=== PATIENT | female | born 1945 | race Caucasian/White ===

== ENCOUNTER 2021-03-13 14:50 | Observation (INO) ==
[2021-03-13] MEDS ORDERED: LORazepam 0.5 MG TAB PO STA (15:19)
--- NOTE | 2021-03-13 15:19 | Emergency Department Note ---
Impression & Plan Mood disorder ED Provider Note INFORMANT: Patient ED PROVIDER(S): Dony Hooper MD CHIEF COMPLAINT: Mental health evaluation PLAN: Disposition: Admitted Condition: Good Outpatient prescription management: none Referral: None MEDICAL DECISION MAKING: Patient presented because of requesting a mental health evaluation. noted that she had a change in her behavior. She has had 2 recent mental health admissions. The patient had a nonfocal examination. A work-up was obtained. Her ECG did not show any acute findings. She had a leukocytosis on CBC. Urinalysis was concerning for infection. The rest of her electrolytes and toxicology panel were unremarkable. The patient was given IV Rocephin. Head CT imaging was negative as was chest x-ray. Discussed with case management. The patient will be admitted medically here and psychiatry can be consulted. Consultation was made with Dr. Cl Roman of the [facility] service. Patient was evaluated in the ER for further management. Triage Nursing notes reviewed and agree them. Vital Signs: reviewed and remarkable for no significant abnormalities Differential diagnosis: Mood disorder, infection, hypoglycemia, electrolyte abnormalities, cardiac so urces, intracerebral event, toxicologic, trauma, neurologic, as well as other pathologies. Diagnostics interpreted by me: ECG: Twelve-lead ECG reveals a normal sinus rhythm at 60 bpm. Poor R wave progression. No ST elevation or depression. No PACs or PVCs. Normal axis. Imaging studies: Chest x-ray. Findings: A chest x-ray was performed and revealed no pneumothorax, effusion, infiltrate, pulmonary edema, free air under the diaphragm, or wide mediastinum. Impression: No acute disease. Head CT: A noncontrast CT scan of the head was performed and was negative for tumor, fracture, intracranial hemorrhage, or other acute pathology. HPI: The patient is a 75 year old female who presents to the Emergency Room with complaints of depression and change in mental status. This started about 2 months ago per the and is worsening. The patient has spent two 1 weeks admissions at [facility] psychiatric unit. She was diagnosed with depression and mood disorder. She also had anxiety. states that she is getting worse. They presented here for a new evaluation and help. Patient has poor appetite and sleep. notes that she has excessive worry. The patient has found no relieving factors. Current pain is rated as 0/10. Patient does have a tremor. states she was seen at [facility] and worked up. No Parkinson's was found. Pt denies LOC, headache, fevers, chills, diaphoresis, visual changes, neck pain, chest pain, breathing difficulties, nausea, vomiting, abdominal pain, back pain, melena, hematochezia, urinary symptoms, numbness, weakness, lymphadenopathy, rash, or other complaints. ROS: See above HPI for pertinent positives & negatives. A total of 10 systems reviewed and were otherwise negative. PAST MEDICAL HISTORY:See Below , mood disorder PAST SURGICAL HISTORY:See Below, FAMILY HISTORY:See Below SOCIAL HISTORY:See Below, HOME MEDICATIONS:See Below ALLERGIES:See Below VITALS:See Below PHYSICAL EXAMINATION: GENERAL: Awake, alert, extremely anxious-appearing, in mild distress HENT: Normocephalic, atraumatic. Oropharynx unremarkable. EYES: Normal conjunctiva. Sclera non-icteric. NECK: Inspection normal. Non-tender. Supple. No nuchal rigidity. FROM. No masses. RESPIRATORY: Clear to auscultation. No wheezes. No rales. Normal respiratory effort. CARDIAC: Normal rate. Normal rhythm. No murmurs. No rubs. Extremities warm and well perfused. Pulses equal. No JVD. GI: Soft, non-distended. No tenderness to palpation. No rebound or guarding. No masses. RECTAL: Deferred. MUSCULOSKELETAL: Atraumatic. Chest examination reveals no tenderness. The back is symmetrical on inspection without obvious abnormality. There is no CVA tenderness to palpation. No joint edema. LOWER EXTREMITIES: Calves are equal size bilaterally and non-tender. No edema. No discoloration. NEURO: Normal sensorium. No sensory or motor deficits noted. SKIN: No rash or jaundice noted. PSYCH: Depressed mood and flat affect. No hallucinations or delusions. Impaired insight. Vague SI without plan. No HI. Dony Hooper MD Past Med/Surg History Social History Smoking Status: Never smoker Preferred Language: Bel[place]an Feels Safe at Home: Yes Home Meds Home Medications Medication Instructions Recorded Confirmed atenolol 25 mg PO DAILY 03/13/21 03/13/21 buspirone 10 mg TID 03/13/21 03/13/21 citalopram 20 mg PO DAILY 03/13/21 03/13/21 hydroxyzine pamoate [Vistaril] 25 mg Q4 PRN 03/13/21 03/13/21 lisinopril 20 mg PO DAILY 03/13/21 03/13/21 potassium chloride 20 meq PO BID 03/13/21 03/13/21 Results & Data (ED) Vital Signs Vital Signs - 24 hr 03/13/21 14:52 03/13/21 17:20 Temperature 36.5 C Temperature Source Temporal Artery Scan Pulse Rate 75 Pulse Rate [Finger] 70 Pulse Rhythm Regular Respiratory Rate 18 18 Respiratory Effort / Characteristics Non-Labored Spontaneous Respiratory Depth Normal Respiratory Pattern Regular Blood Pressure 132/72 Blood Pressure [Left Arm] 135/74 Blood Pressure Mean 92 Blood Pressure Mean [Left Arm] 94 Pulse Oximetry 92 96 Oxygen Delivery Method Room Air Room Air Sepsis Recent Fever Within 48 Hours No Sepsis New/Unexplained Change in Mental Status No Sepsis Action Taken by Nursing No Action Required Laboratory Data Result diagrams: 03/13/21 15:13 03/13/21 15:13 Lab Results 03/13/21 03/13/21 03/13/21 Range/Units 15:13 15:13 15:13 WBC 15.57 H (4.8-10.8) K/uL RBC 5.24 (4.2-5.4) M/uL Hgb 16.1 H (12.0-16.0) g/dL Hct 46.6 (37-47) % MCV 88.9 (80-100) fL MCH 30.7 (25-34) pg MCHC 34.5 (32-36) g/dL RDW Std Deviation 45.4 (36.4-46.3) fL RDW Coeff of Ziyad 13.9 (11.5-14.5) % Plt Count 327 (130-400) K/uL MPV 8.9 (7.4-10.4) fL Immature Gran % (Auto) 0.3 % Neut % (Auto) 73.2 % Lymph % (Auto) 20.5 % [place] % (Auto) 5.4 % Eos % (Auto) 0.5 % Baso % (Auto) 0.1 % Neut # (Auto) 11.39 H (1.4-6.5) K/uL Lymph # (Auto) 3.19 (1.2-3.4) K/uL [place] # (Auto) 0.84 H (0.11-0.59) K/uL Eos # (Auto) 0.08 (0-0.5) K/uL Baso # (Auto) 0.02 (0-0.2) K/uL Immature Gran # (Auto) 0.05 H (0.00-0.02) K/uL Sodium 134 L (136-145) mmol/L Potassium 4.6 (3.5-5.1) mmol/L Chloride 101 (98-107) mmol/L Carbon Dioxide 25 (21-32) mmol/L Anion Gap 8.0 (3-11) BUN 14 (7-18) mg/dl Creatinine 0.89 (0.6-1.2) mg/dl Est Cr Clr Drug Dosing 63.0 ml/min Est GFR ( Amer) 74.0 ml/min Est GFR (Non-Af Amer) 63.8 ml/min BUN/Creatinine Ratio 16.0 (10-20) Glucose 214 H (70-99) mg/dl Lactate (0.4-2.0) mmol/L Calcium 9.9 (8.5-10.1) mg/dl Total Bilirubin 0.7 (0.2-1) mg/dl AST 16 (15-37) U/L ALT 28 (12-78) U/L Alkaline Phosphatase 67 (45-117) U/L Troponin I < 0.015 (0-0.045) ng/ml Total Protein 7.5 (6.4-8.2) gm/dl Albumin 3.7 (3.4-5.0) gm/dl Globulin 3.8 (2.5-4.0) gm/dl Albumin/Globulin Ratio 1.0 (0.9-2) TSH 1.330 (0.300-4.500) uIu/ml Urine Color Urine Appearance (Clear) Urine pH (4.5-7.5) Ur Specific [place] (1.000-1.030) Urine Protein (Negative) Urine Glucose (UA) (Negative) Urine Ketones (Negative) Urine Blood (Negative) Urine Nitrite (Negative) Urine Bilirubin (Negative) Urine Urobilinogen (Negative) Ur Leukocyte Esterase (Negative) Urine WBC (Auto) (0-5) /hpf Urine RBC (Auto) (0-4) /hpf U Hyaline Cast (Auto) (0-5) /lpf U Epithel Cells (Auto) (0-5) /lpf Urine Bacteria (Auto) (Negative) Salicylates < 1.7 L (2.8-20) mg/dl Urine Opiates Screen (Neg) Ur Methadone, Qual (Neg) Acetaminophen < 2 L (10-30) ug/ml Urine Barbiturates (Neg) Ur Phencyclidine (PCP) (Neg) U Amphetamin/Meth Scrn (Neg) MDMA (Ecstasy) Screen (Neg) U Benzodiazepines Scrn (Neg) Ur Cocaine Metabolite (Neg) U Marijuana (THC) Screen (Neg) Ethyl Alcohol mg/dL (0-3) mg/dl COVID-19 Eval Order SARS-CoV-2, RNA, NAAT (NEGATIVE) 03/13/21 03/13/21 03/13/21 Range/Units 15:13 15:48 15:48 WBC (4.8-10.8) K/uL RBC (4.2-5.4) M/uL Hgb (12.0-16.0) g/dL Hct (37-47) % MCV (80-100) fL MCH (25-34) pg MCHC (32-36) g/dL RDW Std Deviation (36.4-46.3) fL RDW Coeff of Ziyad (11.5-14.5) % Plt Count (130-400) K/uL MPV (7.4-10.4) fL Immature Gran % (Auto) % Neut % (Auto) % Lymph % (Auto) % [place] % (Auto) % Eos % (Auto) % Baso % (Auto) % Neut # (Auto) (1.4-6.5) K/uL Lymph # (Auto) (1.2-3.4) K/uL [place] # (Auto) (0.11-0.59) K/uL Eos # (Auto) (0-0.5) K/uL Baso # (Auto) (0-0.2) K/uL Immature Gran # (Auto) (0.00-0.02) K/uL Sodium (136-145) mmol/L Potassium (3.5-5.1) mmol/L Chloride (98-107) mmol/L Carbon Dioxide (21-32) mmol/L Anion Gap (3-11) BUN (7-18) mg/dl Creatinine (0.6-1.2) mg/dl Est Cr Clr Drug Dosing ml/min Est GFR ( Amer) ml/min Est GFR (Non-Af Amer) ml/min BUN/Creatinine Ratio (10-20) Glucose (70-99) mg/dl Lactate (0.4-2.0) mmol/L Calcium (8.5-10.1) mg/dl Total Bilirubin (0.2-1) mg/dl AST (15-37) U/L ALT (12-78) U/L Alkaline Phosphatase (45-117) U/L Troponin I (0-0.045) ng/ml Total Protein (6.4-8.2) gm/dl Albumin (3.4-5.0) gm/dl Globulin (2.5-4.0) gm/dl Albumin/Globulin Ratio (0.9-2) TSH (0.300-4.500) uIu/ml Urine Color Urine Appearance (Clear) Urine pH (4.5-7.5) Ur Specific [place] (1.000-1.030) Urine Protein (Negative) Urine Glucose (UA) (Negative) Urine Ketones (Negative) Urine Blood (Negative) Urine Nitrite (Negative) Urine Bilirubin (Negative) Urine Urobilinogen (Negative) Ur Leukocyte Esterase (Negative) Urine WBC (Auto) (0-5) /hpf Urine RBC (Auto) (0-4) /hpf U Hyaline Cast (Auto) (0-5) /lpf U Epithel Cells (Auto) (0-5) /lpf Urine Bacteria (Auto) (Negative) Salicylates (2.8-20) mg/dl Urine Opiates Screen (Neg) Ur Methadone, Qual (Neg) Acetaminophen (10-30) ug/ml Urine Barbiturates (Neg) Ur Phencyclidine (PCP) (Neg) U Amphetamin/Meth Scrn (Neg) MDMA (Ecstasy) Screen (Neg) U Benzodiazepines Scrn (Neg) Ur Cocaine Metabolite (Neg) U Marijuana (THC) Screen (Neg) Ethyl Alcohol mg/dL < 3.0 (0-3) mg/dl COVID-19 Eval [id number] SARS-[facility]-2, RNA, NAAT NEGATIVE (NEGATIVE) 03/13/21 03/13/21 03/13/21 Range/Units 16:30 Unknown Unknown WBC (4.8-10.8) K/uL RBC (4.2-5.4) M/uL Hgb (12.0-16.0) g/dL Hct (37-47) % MCV (80-100) fL MCH (25-34) pg MCHC (32-36) g/dL RDW Std Deviation (36.4-46.3) fL RDW Coeff of Ziyad (11.5-14.5) % Plt Count (130-400) K/uL MPV (7.4-10.4) fL Immature Gran % (Auto) % Neut % (Auto) % Lymph % (Auto) % [place] % (Auto) % Eos % (Auto) % Baso % (Auto) % Neut # (Auto) (1.4-6.5) K/uL Lymph # (Auto) (1.2-3.4) K/uL [place] # (Auto) (0.11-0.59) K/uL Eos # (Auto) (0-0.5) K/uL Baso # (Auto) (0-0.2) K/uL Immature Gran # (Auto) (0.00-0.02) K/uL Sodium (136-145) mmol/L Potassium (3.5-5.1) mmol/L Chloride (98-107) mmol/L Carbon Dioxide (21-32) mmol/L Anion Gap (3-11) BUN (7-18) mg/dl Creatinine (0.6-1.2) mg/dl Est Cr Clr Drug Dosing ml/min Est GFR ( Amer) ml/min Est GFR (Non-Af Amer) ml/min BUN/Creatinine Ratio (10-20) Glucose (70-99) mg/dl Lactate 1.3 (0.4-2.0) mmol/L Calcium (8.5-10.1) mg/dl Total Bilirubin (0.2-1) mg/dl AST (15-37) U/L ALT (12-78) U/L Alkaline Phosphatase (45-117) U/L Troponin I (0-0.045) ng/ml Total Protein (6.4-8.2) gm/dl Albumin (3.4-5.0) gm/dl Globulin (2.5-4.0) gm/dl Albumin/Globulin Ratio (0.9-2) TSH (0.300-4.500) uIu/ml Urine Color Dark Yellow Urine Appearance Cloudy A (Clear) Urine pH 5.0 (4.5-7.5) Ur Specific [place] 1.037 H (1.000-1.030) Urine Protein 1+ H (Negative) Urine Glucose (UA) Negative (Negative) Urine Ketones 1+ H (Negative) Urine Blood Negative (Negative) Urine Nitrite Positive A (Negative) Urine Bilirubin 1+ H (Negative) Urine Urobilinogen Negative (Negative) Ur Leukocyte Esterase Trace H (Negative) Urine WBC (Auto) 10-30 H (0-5) /hpf Urine RBC (Auto) 0-4 (0-4) /hpf U Hyaline Cast (Auto) 5-10 H (0-5) /lpf U Epithel Cells (Auto) >30 H (0-5) /lpf Urine Bacteria (Auto) 4+ H (Negative) Salicylates (2.8-20) mg/dl Urine Opiates Screen Neg (Neg) Ur Methadone, Qual Neg (Neg) Acetaminophen (10-30) ug/ml Urine Barbiturates Neg (Neg) Ur Phencyclidine (PCP) Neg (Neg) U Amphetamin/Meth Scrn Neg (Neg) MDMA (Ecstasy) Screen Neg (Neg) U Benzodiazepines Scrn Neg (Neg) Ur Cocaine Metabolite Neg (Neg) U Marijuana (THC) Screen Neg (Neg) Ethyl Alcohol mg/dL (0-3) mg/dl COVID-19 Eval Order SARS-CoV-2, RNA, NAAT (NEGATIVE) Administered Medications Discontinued Medications Ceftriaxone Sodium (Rocephin) 1,000 mg in 50 mls @ 100 mls/hr IV NOW STA Stop: 03/13/21 16:43 Last Infusion: 03/13/21 17:22 Dose: 0 mls/hr Documented by: [id number] Admin: 03/13/21 16:52 Dose: 100 mls/hr Documented by: [id number] Lorazepam (Lorazepam 0.5 Mg Tab) 0.5 mg PO NOW STA Stop: 03/13/21 15:20 Last Admin: 03/13/21 15:38 Dose: 0.5 mg Documented by: [id number] Imaging Data Radiologist's Impression: Chest X-Ray 03/13/21 14:58 SINGLE VIEW CHEST CLINICAL HISTORY: Change in mental status. FINDINGS: An AP, portable, semierect chest radiograph is obtained. No prior studies are available for comparison at the time of dictation. The examination is degraded by portable technique, apical lordotic positioning, and patient rotation. The heart is enlarged noting atherosclerotic calcification of the thoracic aorta. The pulmonary vasculature is noncongested. A hiatal hernia is noted. There is mild elevation of the right hemidiaphragm. No airspace consolidation or large pleural effusion is identified. No pneumothorax is seen. The skeletal structures are osteopenic. The bony thorax is grossly intact. Spondylotic change is noted in the thoracic spine. IMPRESSION: Mild cardiomegaly with no acute cardiopulmonary abnormality. ACT 112: Negative or not required by law. Electronically signed by: Ryland Lipscomb M.D. 03/13/2021 3:[address] 03/13/21 14:58 CT SCAN OF THE BRAIN WITHOUT IV CONTRAST CLINICAL HISTORY: Change in mental status. COMPARISON STUDY: No priors. TECHNIQUE: Unenhanced axial CT scan of the brain is performed from the vertex to the skull base. A dose lowering technique was utilized adhering to the principles of ALARA. CT DOSE: 614.27 mGy.cm FINDINGS: Brain parenchyma: There are age-related involutional changes noting mild subcortical and periventricular microangiopathic change. There is no hemorrhage, mass effect, or evidence of acute territorial ischemia by CT criteria. Cardona- white matter differentiation is preserved. No extra-axial fluid collection is seen. Ventricles, sulci, cisterns: Prominent secondary to involutional change. Intracranial vasculature: There is atherosclerotic calcification of the cavernous carotid and vertebral arteries. Calvarium: Unremarkable. Sinuses and mastoids: The visualized paranasal sinuses are clear. The mastoid air cells are well pneumatized. Orbits: The bony orbits are grossly intact. IMPRESSION: There is no hemorrhage, mass effect, or evidence of acute territorial ischemia by CT criteria. ACT 112: Negative or not required by law. Electronically signed by: Ryland Lipscomb M.D. 03/13/2021 3:53 PM Discharge Plan Visit Data Chief Complaint: Mental Health Evaluation Stated Complaint: ANIEXTY/ MENTAL STATE ED Provider: Dony Hooper Discharge Problem: Mood disorder Forms Stand Alone Forms: My [facility], Suicide Prevention Resources Prescriptions Prescriptions: No Action buspirone 10 mg tablet 10 mg TID RF: 0 lisinopril 20 mg tablet 20 mg PO DAILY RF: 0 atenolol 25 mg tablet 25 mg PO DAILY RF: 0 citalopram 20 mg tablet 20 mg PO DAILY RF: 0 potassium chloride 20 mEq tablet extended release 20 meq PO BID RF: 0 hydroxyzine pamoate [Vistaril] 25 mg Capsule 25 mg Q4 PRN (Reason: Anxiety) RF: 0
--- NOTE | 2021-03-13 15:26 | XRay Report ---
SINGLE VIEW CHEST CLINICAL HISTORY: Change in mental status. FINDINGS: An AP, portable, semierect chest radiograph is obtained. No prior studies are available for comparison at the time of dictation. The examination is degraded by portable technique, apical lordo tic positioning, and patient rotation. The heart is enlarged noting atherosclerotic calcification of the thoracic aorta. The pulmonary vasculature is noncongested. A hiatal hernia is noted. There is mi ld elevation of the right hemidiaphragm. No airspace consolidation or large pleural effusion is ident ified. No pneumothorax is seen. The skeletal structures are osteopenic. The bony thorax is grossly in tact. Spondylotic change is noted in the thoracic spine. IMPRESSION: Mild cardiomegaly with no acute cardiopulmonary abnormality. ACT 112: Negative or not required by law. Electronically signed by: Ryland Lipscomb M.D. 03/13/2021 3:24 PM
[2021-03-13 15:27] LABS: Basophils # (auto) 0.02 K/uL (0-0.2); Basophils % (auto) 0.1 %; Eosinophils # (auto) 0.08 K/uL (0-0.5); Eosinophils % (auto) 0.5 %; Hematocrit (blood only) 46.6 % (37-47); Hemoglobin 16.1 g/dL (12.0-16.0); Immature Granulocytes # (auto) 0.05 K/uL (0.00-0.02); Immature Granulocytes % (auto) 0.3 %; Lymphocytes # (auto) 3.19 K/uL (1.2-3.4); Lymphocytes % (auto) 20.5 %; Mean Corpuscular Hemoglobin 30.7 pg (25-34); Mean Corpuscular Hgb Conc 34.5 g/dL (32-36); Mean Corpuscular Volume 88.9 fL (80-100); Mean Platelet Volume 8.9 fL (7.4-10.4); Monocytes # (auto) 0.84 K/uL (0.11-0.59); Monocytes % (auto) 5.4 %; Neutrophils # (auto) 11.39 K/uL (1.4-6.5); Neutrophils % (auto) 73.2 %; Platelet Count 327 K/uL (130-400); RDW Coefficient of Variation 13.9 % (11.5-14.5); RDW Standard Deviation 45.4 fL (36.4-46.3); Red Blood Count 5.24 M/uL (4.2-5.4); White Blood Count 15.57 K/uL (4.8-10.8)
[2021-03-13 15:52] LABS: Alanine Aminotransferase 28 U/L (12-78); Albumin Level 3.7 gm/dl (3.4-5.0); Aspartate Aminotransferase 16 U/L (15-37); Blood Urea Nitrogen 14 mg/dl (7-18); Calcium 9.9 mg/dl (8.5-10.1); Carbon Dioxide 25 mmol/L (21-32); Chloride 101 mmol/L (98-107); Est GFR (Non-African American) 63.8 ml/min; Glucose 214 mg/dl (70-99); Potassium 4.6 mmol/L (3.5-5.1); Sodium 134 mmol/L (136-145)
[2021-03-13 15:53] LABS: Appearance Urine Cloudy (Clear); Bacteria Urine Automated 4+ (Negative); Blood Urine Negative (Negative); Color Urine Dark Yellow; Epithelial Cell Urine Auto >30 /lpf (0-5); Glucose Urine UA Negative (Negative); Ketones Urine 1+ (Negative); Leukocyte Esterase Urine Trace (Negative); Nitrite Urine Positive (Negative); Protein Urine 1+ (Negative); Specific Gravity Urine 1.037 (1.000-1.030); Urobilinogen Urine Negative (Negative)
[2021-03-13 15:54] LABS: Bilirubin Urine 1+ (Negative)
--- NOTE | 2021-03-13 15:55 | CT Scan Report ---
CT SCAN OF THE BRAIN WITHOUT IV CONTRAST CLINICAL HISTORY: Change in mental status. COMPARISON STUDY: No priors. TECHNIQUE: Unenhanced axial CT scan of the brain is performed from the vertex to the skull base. A do se lowering technique was utilized adhering to the principles of ALARA. CT DOSE: 614.27 mGy.cm FINDINGS: Brain parenchyma: There are age-related involutional changes noting mild subcortical and periventric ular microangiopathic change. There is no hemorrhage, mass effect, or evidence of acute territorial i schemia by CT criteria. Cardona-white matter differentiation is preserved. No extra-axial fluid collecti on is seen. Ventricles, sulci, cisterns: Prominent secondary to involutional change. Intracranial vasculature: There is atherosclerotic calcification of the cavernous carotid and vertebr al arteries. Calvarium: Unremarkable. Sinuses and mastoids: The visualized paranasal sinuses are clear. The mastoid air cells are well pneu matized. Orbits: The bony orbits are grossly intact. IMPRESSION: There is no hemorrhage, mass effect, or evidence of acute territorial ischemia by CT crit vini. ACT 112: Negative or not required by law. Electronically signed by: Ryland Lipscomb M.D. 03/13/2021 3:53 PM
[2021-03-13 15:56] LABS: Acetaminophen < 2 ug/ml (10-30); Salicylate < 1.7 mg/dl (2.8-20)
[2021-03-13 16:03] LABS: Alkaline Phosphatase 67 U/L (45-117); Bilirubin,Total 0.7 mg/dl (0.2-1); Globulin 3.8 gm/dl (2.5-4.0); Total Protein 7.5 gm/dl (6.4-8.2); Troponin I < 0.015 ng/ml (0-0.045)
[2021-03-13 16:09] LABS: Amphetamines+Metham, Urine Neg (Neg); Barbiturates, Urine Neg (Neg); Benzodiazepine, Urine Neg (Neg); Cocaine, Urine Neg (Neg); MDMA (Ecstacy), Urine Neg (Neg); Methadone, Urine Neg (Neg); Opiate, Urine Neg (Neg); Phencyclidine, Urine Neg (Neg)
[2021-03-13] MEDS ORDERED: cefTRIAXone SODIUM 1,000 MG/50 ML BAG IV STA (16:14)
[2021-03-13 16:22] LABS: RBC Urine Automated 0-4 /hpf (0-4)
--- NOTE | 2021-03-13 18:23 | History & Physical Report ---
Date of Service March 13, 2021 Assessment & Plan (1) UTI (urinary tract infection): Continue ceftriaxone 1g IV daily Pending urine/blood cultures Trend WBC (2) Dyskinesia: Stop Buspar. Avoid anti-psychotics. Appears to be consistent HIM request for notes from recent admission in [place] Consult neurology (3) Tremor: Both postural and kinetic. ?Enhanced by citalopram/buspar. Discontinue Buspar alone for now. Consult neurology (4) Anxiety: Her movement disorder appears to be out of proportion to her anxiety on my assessment today. We will continue citalopram however given the Buspar known association with dyskinesia and patient's association this made her worse will discontinue this. (5) Hypertension: Continue atenolol 25 mg p.o. daily, lisinopril 20 mg p.o. daily (6) T2DM (type 2 diabetes mellitus): HbA1C with AM labs Lantus 10-30 units depending on BSG Novolog Goal BSG Range: Low 110 mg/dL, High 140 mg/dL Correction Factor: 15 mg/dL/unit INS:CHO Ratio: 1unit per 4 gms CHO consumed BSGs ACHS if eating, q6h if npo History of Present Illness Chief Complaint: Restlessness Primary Care Provider: Hilaria López Sandrine Heart is a 75 year old female who presents to the ER for mental health evaluation. History taken from the patient, , Triage, ER and [facility]'s notes. She reportedly has been feeling anxious and depressed with thoughts of suicide but feels she would not act on it. She notes being extremely restless and unable to sleep at night as she has to get up all the time to walk around the room. She denies any muscle weakness or numbness. She has a postural tremor mainly on her right side including her mastication muscle but this is more acute over the last month. She reports an association with this getting worse and starting on Buspar. She denies recently seeing a neurologist. Per triage assessments her states she cannot sit still, cannot eat and cannot sleep since February 12. She has had 2 stays at [place] [facility] with no improvement with medications. She comes to the [facility] today as they have been unhappy with the care in [place]. She has had suicidal ideation without a plan stating I have a thoughts, but would not actually do it. I just want this to stop. Discussed with her over the phone. 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 After the last hospitalization at [facility] in [place] she was reportedly doing well for only 1-2 days. Her took over her medications to help with compliance but this didn't help. Per [facility] unit notes she was admitted there a few months ago initially and was stabilized on her current medications but was non- compliant with this regimen at home. Her PCP switched her to sertraline but she never followed up with a psychiatrist. She wasre-evaluated for major depressive disorder on February 28 and admitted (I am less clear when she was discharged). She was restarted on citalopram and buspar and improved enough to be discharged home, although her thinks the patient asked to be discharged too early. In the ER she was noted to have urinalysis consistent with infection. She does endorse chills for the last 3-4 nights but no specific urinary symptoms. Due to urinary tract infection she was referred to medicine for admission and ongoing management. Home Medications Medication Instructions Recorded Confirmed Type atenolol 25 mg PO DAILY 03/13/21 03/13/21 History buspirone 10 mg TID 03/13/21 03/13/21 History citalopram 20 mg PO DAILY 03/13/21 03/13/21 History hydroxyzine pamoate [Vistaril] 25 mg Q4 PRN 03/13/21 03/13/21 History lisinopril 20 mg PO DAILY 03/13/21 03/13/21 History potassium chloride 20 meq PO BID 03/13/21 03/13/21 History Past Med/Surg History Medical History (Updated 03/14/21 @ 07:04 by Cl Roman MD) Hypertension T2DM (type 2 diabetes mellitus) Social History Smoking Status: Never smoker Hx Alcohol Use: No Hx Substance Use: No Preferred Language: Urdu Communication Ability: Effective Cooker Pie Filling Required: No Beliefs That Will Affect Care: None Current Living Situation: Spouse Other Information That Helps Us Care for You: No Feels Safe at Home: Yes Safety Concerns: Feels Safe At This Time Assistive Devices: Denture - Upper and Denture - Lower Review of Systems Review of Systems: All systems reviewed & are unremarkable except as noted in HPI & below Physical Exam Constitutional: WD/WN, vitals as above Eyes: PERRL, conjunctivae normal, anicteric sclerae ENMT: external ear and nose normal, oropharynx normal Neurologic: moves all extremities and awake; not confused Speech / Cognition: normal speech Motor/Sensory: + tremor (postural TUE > LUE, mastication muscles) Cranial Nerves: PERRL, EOM intact bilaterally, normal facial strength, tongue midline, able to rotate head bilaterally, able to elevate shoulders bilaterally, no nystagmus and symmetric palate elevation Gait: + wide-based gait Coordination: + abnormal [id number] test (R > L) Psychiatric: Orientation: alert and oriented x 3 Eye Contact: good eye contact Affect: euthymic affect Mood: + anxious mood Thought Process: linear/logical thought process Suicidal Thoughts: denies suicidal plan; + rep orts suicidal thoughts Homicidal Thoughts: denies homicidal thoughts Genitourinary: no CVA tenderness Results & Data Results & Data ([facility]) Vital Signs (Past 12 Hours) Vital Signs Temp Pulse Pulse Resp BP BP Pulse Ox 03/13/21 17:20 70 18 135/74 96 03/13/21 14:52 36.5 C 75 18 132/[address] SCAN OF THE BRAIN WITHOUT IV CONTRAST IMPRESSION: There is no hemorrhage, mass effect, or evidence of acute territorial ischemia by CT criteria. SINGLE VIEW CHEST IMPRESSION: Mild cardiomegaly with no acute cardiopulmonary abnormality. Medications Administered ER Medications Given: Lorazepam 0.5mg PO Ceftriaxone 1g IV ECG Indication: altered mental status Rate (beats per minute): 68 Rhythm: normal sinus Findings: no acute ischemic change Comparison ECG Date: from (Aug 02, 2021) Change: no significant change Code Status & VTE Plan Code Status Full VTE Prophylaxis Plan VTE Prophylaxis will be ordered: No PG Care Time/CCT Total # of Minutes Spent Total Time Spent with Patient: Total time spent is greater than 50% in coordination of care (as documented) at patient's floor/unit and/or counseling patient: Coding Level of Care Code 15312 OBS Care - Level 3 Diagnoses UTI (urinary tract infection) N39.0 Dyskinesia G24.9 Tremor R25.1 Anxiety F41.9 Hypertension I10 T2DM (type 2 diabetes mellitus) E11.9
[2021-03-13] MEDS ORDERED: CARBOHYDRATES FOR HYPOGLYCEMIA PO PRN (20:39)
[2021-03-13] MEDS ORDERED: GLUCOSE 10 TABS/TUBE PO PRN (20:39)
[2021-03-13] MEDS ORDERED: GLUCOSE 40% GEL 15 GM TUBE PO PRN (20:39)
[2021-03-13] MEDS ORDERED: GLUCAGON FOR INJ 1 MG VIAL SQ PRN (20:39)
[2021-03-13] MEDS ORDERED: DEXTROSE 50% 50 ML SYRINGE IV PRN (20:39)
[2021-03-13] MEDS: INSULIN ASPART 100 UNITS/ML 3 ML PEN SC SCH (21:44)
[2021-03-13] MEDS: POTASSIUM CHLORIDE CRTAB 20 MEQ TABCR PO SCH (21:48)
[2021-03-13] MEDS: INSULIN GLARGINE SOLOSTAR 100 UNITS/ML 3 ML PEN SC SCH (22:48)
[2021-03-14] MEDS: hydrOXYzine HCl 25 MG TAB PO PRN ×2 (03:53→09:41)
[2021-03-14 06:21] LABS: Basophils # (auto) 0.03 K/uL (0-0.2); Basophils % (auto) 0.2 %; Eosinophils # (auto) 0.12 K/uL (0-0.5); Eosinophils % (auto) 0.8 %; Hematocrit (blood only) 45.2 % (37-47); Hemoglobin 15.1 g/dL (12.0-16.0); Immature Granulocytes # (auto) 0.03 K/uL (0.00-0.02); Immature Granulocytes % (auto) 0.2 %; Lymphocytes # (auto) 2.52 K/uL (1.2-3.4); Lymphocytes % (auto) 16.9 %; Mean Corpuscular Hemoglobin 30.2 pg (25-34); Mean Corpuscular Hgb Conc 33.4 g/dL (32-36); Mean Corpuscular Volume 90.4 fL (80-100); Monocytes # (auto) 0.94 K/uL (0.11-0.59); Monocytes % (auto) 6.3 %; Neutrophils # (auto) 11.29 K/uL (1.4-6.5); Neutrophils % (auto) 75.6 %; Platelet Count 315 K/uL (130-400); RDW Standard Deviation 46.6 fL (36.4-46.3); White Blood Count 14.93 K/uL (4.8-10.8)
[2021-03-14 06:55] LABS: BUN Creatinine Ratio 24.3 (10-20); Calcium 8.9 mg/dl (8.5-10.1); Est GFR (African American) 97.3 ml/min; Est GFR (Non-African American) 83.9 ml/min; Potassium 4.1 mmol/L (3.5-5.1)
[2021-03-14 07:30] LABS: Estimated Average Glucose 171 mg/dl; Hemoglobin A1C 7.6 % (4.5-5.6)
[2021-03-14] MEDS: POTASSIUM CHLORIDE CRTAB 20 MEQ TABCR PO SCH ×2 (08:17→21:11)
[2021-03-14] MEDS: CITALOPRAM 20 MG TAB PO SCH (08:18)
[2021-03-14] MEDS: lisinopril 20 MG TAB PO SCH (08:18)
[2021-03-14] MEDS: INSULIN GLARGINE SOLOSTAR 100 UNITS/ML 3 ML PEN SC SCH ×2 (08:22→21:13)
[2021-03-14] MEDS: INSULIN ASPART 100 UNITS/ML 3 ML PEN SC SCH ×4 (08:23→21:15)
[2021-03-14] MEDS ORDERED: ATENOLOL 25 MG TABLET PO SCH (09:00)
--- NOTE | 2021-03-14 10:04 | Electrocardiogram Report ---
Test Reason : Blood Pressure : / mmHG Vent. Rate : 068 BPM Atrial Rate : 068 BPM P-R Int : 170 ms QRS Dur : 076 ms QT Int : 430 ms P-R-T Axes : 000 -29 009 degrees QTc Int : 457 ms Poor data quality, interpretation may be adversely affected Normal sinus rhythm Poor R wave progression, consider anterior DC vs. lead placement vs. LVH Abnormal ECG When compared with ECG of 02-AUG-1998 13:23, No significant change was found Confirmed by Hollis Hernandez ([id number]) on 03/14/2021 10:04:01 AM Referred By: Confirmed By:Hollis Hernandez
--- NOTE | 2021-03-14 10:15 | Neurology Consultation ---
Date of Consultation March 14, 2021 Assessment & Plan (1) Tremor: Sandrine Heart is a 75 yo woman w/ PMH of HTN, DM, and anxiety/depression/insomnia who p/t [facility] for worsening symptoms of depression, anxiety, sleep and tremor. # Tremor: given acute onset, c/f functional tremor in setting of decline in mood. 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 - ANILA to obtain records about prior work-up at [facility] (MRI, labs, EEG, etc) - if no MRI brain obtained at OSH, would obtain MRI brain w/ and w/o contrast - would check B12/MMA/folate/thiamine if not already checked at OSH - can consider changing atenolol to propranolol for possible underlying essential tremor - celexa is usually well tolerated in terms of tremor; least tremorigenic anti- depressant would be wellbutrin - no signs of tardive dyskinesia on examination - given c/f functional tremor, she would benefit from CBT with female therapist to help address her current stressors/depression Thank you for this interesting consult. Plan of care discussed with primary team. Please call or text with questions. (2) Hypertension: (3) Mood disorder: History of Present Illness Attending Physician: Erika Sims MD History of Present Illness Sandrine Heart is a 75 yo woman w/ PMH of HTN, DM, and anxiety/depression/insomnia who p/t [facility] for worsening symptoms of depression, anxiety, sleep and tremor. In the ED, she was afebrile, BP 132/72, heart rate 75, respiratory rate 18, satting 92% room air. Labs of her WBC 15.57, hemoglobin 16.1 with MCV 88.9, platelets 327, sodium mildly low at 134, potassium 4.6, creatinine 0.9, glucose 214, calcium within normal, LFTs within normal, troponin negative, TSH within normal, lactate within normal, UA with infection, UDS negative, Covid negative, A1c 7.6. Chest x-ray showed mild cardiomegaly and hiatal hernia but no infection. Further imaging independently reviewed. CT head shows no hemorrhage, notable for mild SVID and ?left frontal lobe arachnoid cyst vs imaging artifact. On examination, she reports that she had acute onset of tremor and worsening depression/anxiety several months ago after an interaction with her granddaughter who did not want to get dressed for school. Endorses severe depression and anxiety symptoms, as well as poor PO intake and sleep but otherwise unable to provide much history. Does note that she did have an MRI at [facility] and was told that she does not have PD. Denies ever being on any anti-psychotics in the past. Remote depression in the period decades ago. Reports that mother may have had a mild tremor with action. Denies any montes bstance/alcohol use. Per report, she has already been worked up at [facility] and [facility] for the same symptoms with no cause found other than underlying mood disorder. Records not available for extent of workup. Home Medications Medication Instructions Recorded Confirmed Type atenolol 25 mg PO DAILY 03/13/21 03/13/21 History buspirone 10 mg TID 03/13/21 03/13/21 History citalopram 20 mg PO DAILY 03/13/21 03/13/21 History hydroxyzine pamoate [Vistaril] 25 mg Q4 PRN 03/13/21 03/13/21 History lisinopril 20 mg PO DAILY 03/13/21 03/13/21 History potassium chloride 20 meq PO BID 03/13/21 03/13/21 History Patient History Medical History Hypertension T2DM (type 2 diabetes mellitus) Social History Smoking Status: Never smoker Hx Alcohol Use: No Hx Substance Use: No Preferred Language: [place] Communication Ability: Effective Senior Energy Trader Required: No Beliefs That Will Affect Care: None Current Living Situation: Spouse Other Information That Helps Us Care for You: No Feels Safe at Home: Yes Safety Concerns: Feels Safe At This Time Assistive Devices: Denture - Upper and Denture - Lower Review of Systems Review of Systems: 14 point review of systems completed and negative except as in HPI. Exam (Neuro) Physical Exam: General Exam: GEN: NAD, sitting in bed. HEENT: No conjunctival injection, no rhinorrhea. CV: RRR, no peripheral edema PULM: Nonlabored respirations on room air, frequent groaning when moving around. Neuro Exam: MS: Awake and Alert. Oriented to person, place, and date. Speech fluent and appropriate without dysarthria or paraphasic errors. Language intact including naming, comprehension, repetition. Cognition and memory mildly impaired. Attention intact. No neglect. CN: Visual vicente full. No extinction to double simultaneous stimuli. Unable to visualize fundi on fundoscopic exam. PERRLA OU. EOMI without nystagmus. Facial sensation intact to LT. Facial muscles full and symmetric. Hearing intact to conversation. Shoulder shrug normal. Tongue midline. When asked to move her face, she would start shaking her jaw (this was not present until asked to move it). MOTOR: Normal bulk and tone, no cogwheeling. No pronator drift. BUE strength 5/5 at deltoids, biceps, triceps, wrist flexors and extensors, and hand grasp bilaterally with giveaway weakness. BLE strength 5/5 at iliopsoas, hamstrings, quadriceps, tibialis anterior, and gastrocnemius bilaterally with mild giveaway weakness 2/2 pain (right>left). REFLEXES: 1+ at biceps, triceps, brachioradialis, trace patella and absent Achilles bilaterally. Flexor plantar responses bilaterally. SENSORY: Intact to LT without extinction to double simultaneous stimuli. Vibration intact throughout. COORDINATION: No dysmetria or ataxia on ebvchx-[id number] bilaterally. Normal Kacie bilaterally. Has an immediate fine high frequency tremor on outstretch (R>L) and at rest that is also present when examiner enters room and looks at her (but not present when she does not realize people are there). Tremor is worse with action like holding a cup and using it. GAIT: Antalgic gait with normal arm swing. Normal Romberg. Normal pull test. Results & Data ([facility]) Vital Signs (Past 12 Hours) Vital Signs Temp Pulse Resp BP Pulse Ox 03/14/21 07:31 36.6 C 80 18 169/74 H 92 PG Care Time/CCT Total # of Minutes Spent Total Time Spent with Patient: Total time spent is greater than 50% in coordination of care (as documented) at patient's floor/unit and/or counseling patient: 60 Coding Level of Care Code 30801 Office/Outpt Visit, New Diagnoses Tremor R25.1 Hypertension I10 Mood disorder F39
[2021-03-14] MEDS ORDERED: LORazepam 0.5 MG TAB PO PRN (11:47)
[2021-03-14 13:05] LABS: Folate (Folic Acid) > 20.00 ng/ml (>5.38); Vitamin B12 857 pg/ml (193-986)
[2021-03-14] MEDS: ALPRAZolam 0.5 MG TABLET PO PRN ×2 (13:57→21:18)
[2021-03-14] MEDS ORDERED: GADOBUTROL 65ML VIAL IV ONE (14:47)
--- NOTE | 2021-03-14 15:03 | Magnetic Resonance Report ---
MRI OF THE BRAIN WITHOUT AND WITH IV CONTRAST CLINICAL HISTORY: Unexplained tremors. COMPARISON STUDY: CT scan dated 03/13/2021 TECHNIQUE: MRI of the brain was performed from the vertex to the skull base utilizing various T1 and T2 weighted sequences. Following the IV administration of 10.4 mL of Gadavist contrast, additional en hanced images were obtained. FINDINGS: Sagittal T1, axial diffusion, proton density and T2 weighted axial, coronal FLAIR, and pre and post a xial T1-weighted images were acquired. These were supplemented with post gadolinium coronal T1 weight ed images. There is a small arachnoid cyst at the left frontoparietal vertex versus focal atrophy. Axial diffusion-weighted images reveal no evidence of acute or subacute infarction. There is no evidence of ventricular dilatation. Proton density T2-weighted and FLAIR images reveal scattered foci of increased T2 signal within the w nasim matter, likely on a small vessel basis. There are no abnormal flow voids. There is no evidence of pathologic enhancement. IMPRESSION: 1. 30 x 14 x 13 mm left frontoparietal vertex arachnoid cyst versus focal atrophy 2. No evidence of acute or subacute infarction 3. No evidence of pathologic enhancement 4. Scattered foci of increased T2 signal within the white matter likely on a small vessel basis ACT 112: Negative or not required by law. Electronically signed by: Naseem Harris M.D. 03/14/2021 3:02 PM
--- NOTE | 2021-03-14 15:18 | Hospitalist Progress Note ---
Date of Service March 14, 2021 Assessment & Plan (1) Anxiety: Presents with severe anxiety for the last month with inability to sleep or sit still, constant worry With significant tremor mostly in the jaw that seems to be functional as per neurology MRI of the brain completed today with possible arachnoid cyst but otherwise normal, no acute findings TSH normal, electrolytes normal Appreciate neurology consultation-check B12, folate, methylmalonic acid, thiamine Switch atenolol to propranolol for tremor and anxiety -Continue citalopram, but BuSpar was discontinued upon admission Appreciate psychiatry consultation-start Xanax 2 mg p.o. every 6 hours as needed anxiety while in the hospital-this is working extremely well so far and has not caused any lethargy -Continue hydroxyzine as needed -Psychiatry will determine if patient needs inpatient psychiatric stay after medically cleared (2) UTI (urinary tract infection): She had no UTI symptoms upon admission as far as dysuria or frequency, however she did report chills at home and had abnormal UA Urine culture growing gram-negative rods Blood cultures no growth to date With leukocytosis but afebrile here -Continue ceftriaxone 1g IV daily Follow-up final urine and blood cultures Follow CBC (3) Dyskinesia: Stop Buspar. Avoid anti-psychotics. HIM request for notes from recent admission in [place] Consult neurology appreciated (4) Tremor: Appreciate neurology consultation-likely functional tremor perhaps some physiologic tremor exacerbated by severe anxiety Switch atenolol to propranolol-we will start at 20 mg p.o. twice daily and titrate up as needed Citalopram would be okay, Wellbutrin would be the least likely to cause tremor Follow thiamine and methylmalonic acid levels B12 and folate normal (5) Hypertension: Blood pressures are well controlled Continue lisinopril 20 mg p.o. daily -Discontinue atenolol and starting propranolol as above (6) T2DM (type 2 diabetes mellitus): HbA1C here is fairly well controlled at 7.6% With some hyperglycemia here persisting near 200 Continue Lantus 10-30 units depending on BSG Change Novolog to lower correction factor to 12 Goal BSG Range: Low 110 mg/dL, High 140 mg/dL Correction Factor: 12 mg/dL/unit INS:CHO Ratio: 1unit per 4 gms CHO consumed BSGs ACHS if eating, q6h if npo (7) Leukocytosis: Secondary to either UTI versus severe stress from anxiety as above Follow CBC Blood cultures and urine culture Treated with ceftriaxone Check peripheral smear (8) DVT prophylaxis: Add SCDs Disposition-continued stay, likely medically stable for discharge tomorrow and will await disposition as per psychiatry Admission and Anticipated Discharge Date Admission Date: March 13, 2021 Subjective Patient received Xanax 2 mg today as per psychiatry prior to her MRI and I saw her after that-she reports feeling much improved. She is asking for help with her anxiety. She states "please do not give up on me." She denies headache or lightheadedness, no chest pain or shortness of breath, no abdominal pain, no nausea or vomiting, no diarrhea or constipation. Review of Systems Review of Systems: All systems reviewed & are unremarkable except as noted in HPI & below Physical Exam Constitutional: WD/WN, vitals as above Eyes: + anicteric sclerae Neck: trachea midline, no thyromegaly Respiratory: normal respiratory effort, lungs clear to auscultation Cardiovascular: RRR, no murmur, no edema Chest (Breasts): Chest: normal inspection of chest Gastrointestinal (Abdomen): normal bowel sounds, soft, nontender, no hepatosplenomegaly Musculoskeletal: Extremities: extremities normal to inspection; no cyanosis and no clubbing Skin: no rashes, warm and dry Neurologic: moves all extremities and awake; no focal motor deficits Psychiatric: Orientation: alert and oriented x 3 Speech: normal rate/rhythm/volume of speech Affect: + anxious affect Lymphatic: no lymphedema Results & Data Results & Data ([facility]) Vital Signs (Past 12 Hours) Vital Signs Temp Pulse Resp BP Pulse Ox 03/14/21 15:02 36.4 C L 74 18 101/64 93 03/14/21 07:31 36.6 C 80 18 169/74 H 92 Laboratory Results 03/14/21 03/14/21 03/14/21 Range/Units 16:37 12:04 11:58 WBC (4.8-10.8) K/uL RBC (4.2-5.4) M/uL Hgb (12.0-16.0) g/dL Hct (37-47) % MCV (80-100) fL MCH (25-34) pg MCHC (32-36) g/dL RDW Std Deviation (36.4-46.3) fL RDW Coeff of Ziyad (11.5-14.5) % Plt Count (130-400) K/uL MPV (7.4-10.4) fL Immature Gran % (Auto) % Neut % (Auto) % Lymph % (Auto) % [place] % (Auto) % Eos % (Auto) % Baso % (Auto) % Neut # (Auto) (1.4-6.5) K/uL Lymph # (Auto) (1.2-3.4) K/uL [place] # (Auto) (0.11-0.59) K/uL Eos # (Auto) (0-0.5) K/uL Baso # (Auto) (0-0.2) K/uL Immature Gran # (Auto) (0.00-0.02) K/uL Absolute Nucleated RBC (0-0) K/uL Nucleated RBC % (auto) % Peripher Smr Path Cons Sodium (136-145) mmol/L Potassium (3.5-5.1) mmol/L Chloride (98-107) mmol/L Carbon Dioxide (21-32) mmol/L Anion Gap (3-11) BUN (7-18) mg/dl Creatinine (0.6-1.2) mg/dl Est Cr Clr Drug Dosing ml/min Est GFR ( Amer) ml/min Est GFR (Non-Af Amer) ml/min BUN/Creatinine Ratio (10-20) Glucose (70-99) mg/dl POC Glucose 199 H 189 H (70-99) mg/dl Estimat Average Glucose mg/dl Hemoglobin A1c (4.5-5.6) % Calcium (8.5-10.1) mg/dl Whole Bld Vitamin B1 Pending Vitamin B12 (193-986) pg/ml Methylmalonic Acid Pending Folate (>5.38) ng/ml 03/14/21 03/14/21 03/14/21 Range/Units 11:58 08:19 05:50 WBC (4.8-10.8) K/uL RBC (4.2-5.4) M/uL Hgb (12.0-16.0) g/dL Hct (37-47) % MCV (80-100) fL MCH (25-34) pg MCHC (32-36) g/dL RDW Std Deviation (36.4-46.3) fL RDW Coeff of Ziyad (11.5-14.5) % Plt Count (130-400) K/uL MPV (7.4-10.4) fL Immature Gran % (Auto) % Neut % (Auto) % Lymph % (Auto) % [place] % (Auto) % Eos % (Auto) % Baso % (Auto) % Neut # (Auto) (1.4-6.5) K/uL Lymph # (Auto) (1.2-3.4) K/uL [place] # (Auto) (0.11-0.59) K/uL Eos # (Auto) (0-0.5) K/uL Baso # (Auto) (0-0.2) K/uL Immature Gran # (Auto) (0.00-0.02) K/uL Absolute Nucleated RBC (0-0) K/uL Nucleated RBC % (auto) % Peripher Smr Path Cons Sodium 135 L (136-145) mmol/L Potassium 4.1 (3.5-5.1) mmol/L Chloride 104 (98-107) mmol/L Carbon Dioxide 25 (21-32) mmol/L Anion Gap 6.0 (3-11) BUN 17 (7-18) mg/dl Creatinine 0.71 (0.6-1.2) mg/dl Est Cr Clr Drug Dosing 79.0 ml/min Est GFR ( Amer) 97.3 ml/min Est GFR (Non-Af Amer) 83.9 ml/min BUN/Creatinine Ratio 24.3 H (10-20) Glucose 201 H (70-99) mg/dl POC Glucose 212 H (70-99) mg/dl Estimat Average Glucose mg/dl Hemoglobin A1c (4.5-5.6) % Calcium 8.9 (8.5-10.1) mg/dl Whole Bld Vitamin B1 Vitamin B12 857 (193-986) pg/ml Methylmalonic Acid Folate > 20.00 (>5.38) ng/ml 03/14/21 03/14/21 03/13/21 Range/Units 05:50 05:50 20:51 WBC 14.93 H (4.8-10.8) K/uL RBC 5.00 (4.2-5.4) M/uL Hgb 15.1 (12.0-16.0) g/dL Hct 45.2 (37-47) % MCV 90.4 (80-100) fL MCH 30.2 (25-34) pg MCHC 33.4 (32-36) g/dL RDW Std Deviation 46.6 H (36.4-46.3) fL RDW Coeff of Ziyad 14.0 (11.5-14.5) % Plt Count 315 (130-400) K/uL MPV 9.0 (7.4-10.4) fL Immature Gran % (Auto) 0.2 % Neut % (Auto) 75.6 % Lymph % (Auto) 16.9 % [place] % (Auto) 6.3 % Eos % (Auto) 0.8 % Baso % (Auto) 0.2 % Neut # (Auto) 11.29 H (1.4-6.5) K/uL Lymph # (Auto) 2.52 (1.2-3.4) K/uL [place] # (Auto) 0.94 H (0.11-0.59) K/uL Eos # (Auto) 0.12 (0-0.5) K/uL Baso # (Auto) 0.03 (0-0.2) K/uL Immature Gran # (Auto) 0.03 H (0.00-0.02) K/uL Absolute Nucleated RBC 0.00 (0-0) K/uL Nucleated RBC % (auto) 0.0 % Peripher Smr Path Cons Pending Sodium (136-145) mmol/L Potassium (3.5-5.1) mmol/L Chloride (98-107) mmol/L Carbon Dioxide (21-32) mmol/L Anion Gap (3-11) BUN (7-18) mg/dl Creatinine (0.6-1.2) mg/dl Est Cr Clr Drug Dosing ml/min Est GFR ( Amer) ml/min Est GFR (Non-Af Amer) ml/min BUN/Creatinine Ratio (10-20) Glucose (70-99) mg/dl POC Glucose 216 H (70-99) mg/dl Estimat Average Glucose 171 mg/dl Hemoglobin A1c 7.6 H (4.5-5.6) % Calcium (8.5-10.1) mg/dl Whole Bld Vitamin B1 Vitamin B12 (193-986) pg/ml Methylmalonic Acid Folate (>5.38) ng/ml PG Care Time/CCT Total # of Minutes Spent Total Time Spent with Patient: Total time spent is greater than 50% in coordination of care (as documented) at patient's floor/unit and/or counseling patient: Coding Level of Care Code 29240 Subseq Obs Care Lvl 3 Diagnoses Anxiety F41.9 UTI (urinary tract infection) N39.0 Dyskinesia G24.9 Tremor R25.1 Hypertension I10 T2DM (type 2 diabetes mellitus) E11.9 Leukocytosis D72.829 DVT prophylaxis Z29.9
--- NOTE | 2021-03-14 15:55 | Psychiatric Consultation ---
Date of Consultation March 14, 2021 Impression / Recommendations Impression [age]-year-old patient with UTI and significant anxiety. It is likely that the patient's current infection exacerbated her psychiatric symptoms. Nevertheless she is suffering from acute anxiety and will benefit from as needed Xanax as needed to address this. Recommendations Start Xanax 2 mg p.o. every 6 hours as needed anxiety while in the hospital Citalopram 20 mg p.o. remains appropriate Continue to treat infection as indicated Inventory Assets Strengths: Insight, ability to communicate Needs: Anxiety relief Risk Factors Assessment Male: No : No Do You Have Access To A Gun?: No Health Problems: Yes Mental Health Diagnoses: No Hopelessness: No Protective Factors Assessment Temple Beliefs: Yes : Yes Stable Relationships: Yes Supportive Family: Yes Psych History Chief Complaint "I am so anxious". History of Present Illness As per psychiatric liaison " Psychiatric consult ordered for patient regarding SI. Primary staff requested liaison speak with patient at ~ 0400 when she woke up and became very anxious. Met with patient, in room, 1:1 present. She isn't the best historian at this time d/t anxiety. She initially reported being awakened by her t.v. being fixed and felt there was too much noise throughout the night, causing her distress. 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 Patient was helping her get ready for school and on the bus in the morning, this became overwhelming to her. Patient had difficulty identifying any other stressors that could have led to this change. She reports feeling helpless and hopeless, "I don't know if I can live like this or if anybody can even help me". Patient reports a worsening of her symptoms when initiated on antidepressants while inpatient at [facility] psych unit. She felt frustrated with several medications that had been made up to this point. She admits to passive wishes, without plan. She was unable to tolerate full suicide risk assessment at this time. She describes poor sleep with extreme sweating and restlessness. Soon into conversation patient began to appear calmer (had received Vistaril prior to encounter) and was drifting to sleep. This liaison ended conversation and exited the room. Liaison will meet with patient again to obtain additional information. Patient aware a psychiatrist will see her today." Patient seen today alongside liaison. She endorses the above information is accurate. Patient was very anxious during the encounter. She states that she does not know what was wrong with her but that she does not feel fine. She goes on to state that she is very anxious and that nothing like this is ever happened to her before. She denied any psychosis at this time, no psychosis evident. Patient denying any suicidal ideation at this time. Reports being worried about her functioning without her. She had recently received some Ativan approximately 2 hours prior but was not having any relief from her anxiety. She endorsed symptoms of racing thoughts as well as a general sense of uneasiness. Past Psychiatric History Previous Psych History: 1 prior episode of depression Do You Have Access To A Gun?: No Home Medications Medication Instructions Recorded Confirmed Type atenolol 25 mg PO DAILY 03/13/21 03/13/21 History buspirone 10 mg TID 03/13/21 03/13/21 History citalopram 20 mg PO DAILY 03/13/21 03/13/21 History hydroxyzine pamoate [Vistaril] 25 mg Q4 PRN 03/13/21 03/13/21 History lisinopril 20 mg PO DAILY 03/13/21 03/13/21 History potassium chloride 20 meq PO BID 03/13/21 03/13/21 History Personal History Beliefs That Will Affect Care: None Patient History Medical History Hypertension T2DM (type 2 diabetes mellitus) Social History Smoking Status: Never smoker Hx Alcohol Use: No Hx Substance Use: No Preferred Language: Pashto Communication Ability: Effective Traffic Representative Required: No Beliefs That Will Affect Care: None Current Living Situation: Spouse Other Information That Helps Us Care for You: No Feels Safe at Home: Yes Safety Concerns: Feels Safe At This Time Assistive Devices: Denture - Upper and Denture - Lower Physical Exam Psychiatric: Orientation: oriented x 3 Apperance: appropriately groomed Eye Contact: + fair eye contact Motor Behavior: + psychomotor agitation and + tremor Speech: + loud speech Affect: + anxious affect Mood: + anxious mood Thought Process: goal directed thought process and + perseveration Thought Content: reality based without delusions Suicidal Thoughts: denies s uicidal thoughts Homicidal Thoughts: denies homicidal thoughts Hallucinations: no auditory hallucinations Cognition: recent memory grossly intact Estimated Intelligence: average estimated intelligence Insight: + fair insight Judgement: + fair judgement Vital Signs (Past 24 Hours): Last Vital Signs Temp 36.4 C L 03/14/21 15:02 Pulse 74 03/14/21 15:02 Resp 18 03/14/21 15:02 BP 101/64 03/14/21 15:02 Pulse Ox 93 03/14/21 15:02 Review of Systems All systems reviewed & are unremarkable except as noted in HPI & below Results & Data (PSY) Medications Administered Alprazolam (Alprazolam 0.5 Mg Tablet) 2 mg PO Q6H PRN PRN Reason: Anxiety Stop: 04/13/21 13:45 Last Admin: 03/14/21 13:57 Dose: 2 mg Documented by: [id number] Citalopram Hydrobromide (Citalopram 20 Mg Tab) 20 mg PO DAILY [facility] Stop: 04/13/21 08:59 Last Admin: 03/14/21 08:18 Dose: 20 mg Documented by: [id number] Hydroxyzine HCl (Hydroxyzine Hcl 25 Mg Tab) 25 mg PO Q4 PRN PRN Reason: Anxiety Stop: 04/12/21 20:38 Last Admin: 03/14/21 09:41 Dose: 25 mg Documented by: [id number] Admin: 03/14/21 03:53 Dose: 25 mg Documented by: [id number] Insulin Aspart (Insulin Aspart 100 Units/Ml 3 Ml Pen) 0 units SC ACHS [facility] Stop: 04/12/21 20:59 Last Admin: 03/14/21 12:19 Dose: 24 units Documented by: [id number] Cosigned by: [id number] Admin: 03/14/21 08:23 Dose: 20 units Documented by: [id number] Cosigned by: [id number] Admin: 03/13/21 21:44 Dose: 6 units Documented by: [id number] Cosigned by: [id number] Insulin Glargine (Insulin Glargine Solostar 100 Units/Ml 3 Ml Pen) 10 - 30 units SC BID [facility] Stop: 04/12/21 20:59 Last Admin: 03/14/21 08:22 Dose: 30 units Documented by: [id number] Cosigned by: [id number] Admin: 03/13/21 22:48 Dose: 30 units Documented by: [id number] Cosigned by: [id number] Lisinopril (Lisinopril 20 Mg Tab) 20 mg PO DAILY [facility] Stop: 04/13/21 08:59 Last Admin: 03/14/21 08:18 Dose: 20 mg Documented by: [id number] Lorazepam (Lorazepam 0.5 Mg Tab) 0.5 mg PO BID PRN PRN Reason: Anxiety Stop: 04/13/21 11:46 Last Admin: 03/14/21 12:19 Dose: 0.5 mg Documented by: [id number] Potassium Chloride (Potassium Chloride Crtab 20 Meq Tabcr) 20 meq PO BID [facility] Stop: 04/12/21 20:59 Last Admin: 03/14/21 08:17 Dose: 20 meq Documented by: [id number] Admin: 03/13/21 21:48 Dose: Not Given Documented by: [id number] Coding Level of Care Code 12813 U Intl Hosp Care Lvl 2
[2021-03-14] MEDS ORDERED: cefTRIAXone SODIUM 2,000 MG in DEXTROSE 5% 50 ML IV SCH (16:00)
[2021-03-14] MEDS ORDERED: ACETAMINOPHEN 500 MG TAB PO PRN (20:03)
[2021-03-14] MEDS: PROPRANOLOL HCL 20 MG TAB PO SCH (21:12)
[2021-03-15 06:01] LABS: Basophils # (auto) 0.02 K/uL (0-0.2); Basophils % (auto) 0.2 %; Eosinophils # (auto) 0.16 K/uL (0-0.5); Eosinophils % (auto) 1.3 %; Hematocrit (blood only) 41.8 % (37-47); Hemoglobin 14.2 g/dL (12.0-16.0); Immature Granulocytes # (auto) 0.03 K/uL (0.00-0.02); Immature Granulocytes % (auto) 0.2 %; Lymphocytes # (auto) 3.38 K/uL (1.2-3.4); Lymphocytes % (auto) 27.4 %; Mean Corpuscular Hemoglobin 30.5 pg (25-34); Mean Corpuscular Volume 89.7 fL (80-100); Monocytes # (auto) 0.78 K/uL (0.11-0.59); Monocytes % (auto) 6.3 %; Neutrophils # (auto) 7.96 K/uL (1.4-6.5); Neutrophils % (auto) 64.6 %; Platelet Count 261 K/uL (130-400); Red Blood Count 4.66 M/uL (4.2-5.4); White Blood Count 12.33 K/uL (4.8-10.8)
[2021-03-15 06:35] LABS: BUN Creatinine Ratio 32.7 (10-20); Calcium 9.5 mg/dl (8.5-10.1); Creatinine Clr Calc Pharmacy 68.4 ml/min; Est GFR (African American) 81.7 ml/min; Est GFR (Non-African American) 70.5 ml/min; Magnesium 1.6 mg/dl (1.8-2.4); Potassium 4.3 mmol/L (3.5-5.1)
[2021-03-15] MEDS: INSULIN GLARGINE SOLOSTAR 100 UNITS/ML 3 ML PEN SC SCH (09:12)
[2021-03-15] MEDS: INSULIN ASPART 100 UNITS/ML 3 ML PEN SC SCH ×2 (09:13→13:15)
[2021-03-15] MEDS: CITALOPRAM 20 MG TAB PO SCH (09:15)
[2021-03-15] MEDS: POTASSIUM CHLORIDE CRTAB 20 MEQ TABCR PO SCH (09:15)
[2021-03-15] MEDS: lisinopril 20 MG TAB PO SCH (09:15)
[2021-03-15] MEDS: PROPRANOLOL HCL 20 MG TAB PO SCH (09:15)
[2021-03-15] MEDS ORDERED: MAGNESIUM SULFATE / D5W 1 GM/100 ML BAG IV ONE (10:30)
--- NOTE | 2021-03-15 12:07 | Discharge Summary ---
Date of Service March 15, 2021 Admission HPI Per Admitting Provider Sandrine Heart is a 75 year old female who presents to the ER for mental health evaluation. History taken from the patient, , Triage, ER and [facility] Paul Tirado's notes. She reportedly has been feeling anxious and depressed with thoughts of suicide but feels she would not act on it. She notes being extremely restless and unable to sleep at night as she has to get up all the time to walk around the room. She denies any muscle weakness or numbness. She has a postural tremor mainly on her right side including her mastication muscle but this is more acute over the last month. She reports an association with this getting worse and starting on Buspar. She denies recently seeing a neurologist. Per triage assessments her states she cannot sit still, cannot eat and cannot sleep since February 12. She has had 2 stays at [facility] with no improvement with medications. She comes to the [facility] today as they have been unhappy with the care in [place]. She has had suicidal ideation without a plan stating I have a thoughts, but would not actually do it. I just want this to stop. Discussed with her over the phone. 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 After the last hospitalization at [facility] in [place] she was reportedly doing well for only 1-2 days. Her took over her medications to help with compliance but this didn't help. Per [facility] unit notes she was admitted there a few months ago initially and was stabilized on her current medications but was non- compliant with this regimen at home. Her PCP switched her to sertraline but she never followed up with a psychiatrist. She wasre-evaluated for major depressive disorder on February 28 and admitted (I am less clear when she was discharged). She was restarted on citalopram and buspar and improved enough to be discharged home, although her thinks the patient asked to be discharged too early. In the ER she was noted to have urinalysis consistent with infection. She does endorse chills for the last 3-4 nights but no specific urinary symptoms. Due to urinary tract infection she was referred to medicine for admission and ongoing management. Principal Diagnosis Anxiety, functional tremor, UTI Discharge Exam Constitutional WD/WN, vitals as above Eyes + anicteric sclerae Neck trachea midline, no thyromegaly Respiratory normal respiratory effort, lungs clear to auscultation Cardiovascular RRR, no murmur, no edema Chest (Breasts) Chest: normal inspection of chest Gastrointestinal (Abdomen) normal bowel sounds, soft, nontender, no hepatosplenomegaly Musculoskeletal Extremities: extremities normal to inspection; no cyanosis and no clubbing Skin no rashes, warm and dry Neurologic moves all extremities and awake; no focal motor deficits Psychiatric Orientation: alert and oriented x 3 Speech: normal rate/rhythm/volume of speech Affect: + anxious affect Lymphatic no lymphedema Discharge Data Allergies Allergy/AdvReac Type Severity Reaction Status Date / Time perfume Allergy Unknown Verified 03/14/21 21:53 pollen extracts AdvReac Unknown Verified 03/14/21 21:53 Consultations 03/13/21 17:18 ED Decision to Admit Stat 03/13/21 17:33 Consult Health Information Management Routine 03/13/21 20:39 Consult Neurology Routine Consult Psychiatry Routine Ordered Studies 03/13/21 14:58 CT head/brain wo con Stat 03/14/21 11:47 MR brain wo/w con Urgent Chest X-Ray 03/13/21 14:58 SINGLE VIEW CHEST CLINICAL HISTORY: Change in mental status. FINDINGS: An AP, portable, semierect chest radiograph is obtained. No prior studies are available for comparison at the time of dictation. The examination is degraded by portable technique, apical lordotic positioning, and patient rotation. The heart is enlarged noting atherosclerotic calcification of the thoracic aorta. The pulmonary vasculature is noncongested. A hiatal hernia is noted. There is mild elevation of the right hemidiaphragm. No airspace consolidation or large pleural effusion is identified. No pneumothorax is seen. The skeletal structures are osteopenic. The bony thorax is grossly intact. S pondylotic change is noted in the thoracic spine. IMPRESSION: Mild cardiomegaly with no acute cardiopulmonary abnormality. ACT 112: Negative or not required by law. Electronically signed by: Ryland Lipscomb M.D. 03/13/2021 3:[address] 03/13/21 14:58 CT SCAN OF THE BRAIN WITHOUT IV CONTRAST CLINICAL HISTORY: Change in mental status. COMPARISON STUDY: No priors. TECHNIQUE: Unenhanced axial CT scan of the brain is performed from the vertex to the skull base. A dose lowering technique was utilized adhering to the principles of ALARA. CT DOSE: 614.27 mGy.cm FINDINGS: Brain parenchyma: There are age-related involutional changes noting mild subcortical and periventricular microangiopathic change. There is no hemorrhage, mass effect, or evidence of acute territorial ischemia by CT criteria. Cardona- white matter differentiation is preserved. No extra-axial fluid collection is seen. Ventricles, sulci, cisterns: Prominent secondary to involutional change. Intracranial vasculature: There is atherosclerotic calcification of the cavernous carotid and vertebral arteries. Calvarium: Unremarkable. Sinuses and mastoids: The visualized paranasal sinuses are clear. The mastoid air cells are well pneumatized. Orbits: The bony orbits are grossly intact. IMPRESSION: There is no hemorrhage, mass effect, or evidence of acute territ orial ischemia by CT criteria. ACT 112: Negative or not required by law. Electronically signed by: Ryland Lipscomb M.D. 03/13/2021 3:53 PM Brain MRI 03/14/21 11:47 MRI OF THE BRAIN WITHOUT AND WITH IV CONTRAST CLINICAL HISTORY: Unexplained tremors. COMPARISON STUDY: CT scan dated 03/13/2021 TECHNIQUE: MRI of the brain was performed from the vertex to the skull base utilizing various T1 and T2 weighted sequences. Following the IV administration of 10.4 mL of Gadavist contrast, additional enhanced images were obtained. FINDINGS: Sagittal T1, axial diffusion, proton density and T2 weighted axial, coronal FLAIR, and pre and post axial T1-weighted images were acquired. These were supplemented with post gadolinium coronal T1 weighted images. There is a small arachnoid cyst at the left frontoparietal vertex versus focal atrophy. Axial diffusion-weighted images reveal no evidence of acute or subacute infarction. There is no evidence of ventricular dilatation. Proton density T2-weighted and FLAIR images reveal scattered foci of increased T2 signal within the white matter, likely on a small vessel basis. There are no abnormal flow voids. There is no evidence of pathologic enhancement. IMPRESSION: 1. 30 x 14 x 13 mm left frontoparietal vertex arachnoid cyst versus focal atrophy 2. No evidence of acute or subacute infarction 3. No evidence of pathologic enhancement 4. Scattered foci of increased T2 signal within the white matter likely on a small vessel basis ACT 112: Negative or not required by law. Electronically signed by: Naseem Harris M.D. 03/14/2021 3:02 PM Hospital Course (1) Anxiety: Presents with severe anxiety for the last month with inability to sleep or sit still, constant worry With significant tremor mostly in the jaw that seems to be functional as per neurology MRI of the brain completed here with possible arachnoid cyst but otherwise normal, no acute findings TSH normal, electrolytes normal Appreciate neurology consultation-check [id number], folate-normal, methylmalonic acid and thiamine-pending at time of discharge Switched atenolol to propranolol for tremor and anxiety -Continue citalopram -BuSpar was held upon admission in case this was worsening her tremor and anxiety, but Psychiatry here does not think this is causing her symptoms and thinks it can be restarted Overall, Psychiatry thinks worsening anxiety due to UTI and with treatment of UTI, should improve-does NOT recommend inpatient stay SHould f/u with usual Psychiatrist as scheduled tomorrow was given Xanax 2mg po x 2 doses here with good success -Continue hydroxyzine as needed (2) UTI (urinary tract infection): She had no UTI symptoms upon admission as far as dysuria or frequency, however she did report chills at home and had abnormal UA as wlel as severe anxiety as above Urine culture growing pansensitive E. coli Blood cultures no growth to date With leukocytosis but afebrile here. Leukocytosis now improving down to 12 -received ceftriaxone 1g IV daily x 2 doses here and dc to home on 5 more day s of keflex 500mg po bid (3) Dyskinesia: Consult neurology appreciated-does not think has PD Brain MRI without acute issues (4) Tremor: Appreciate neurology consultation-likely functional tremor perhaps some physiologic tremor exacerbated by severe anxiety Switched atenolol to propranolol-started at 20 mg p.o. twice daily and titrate up to 40mg bid on discharge Citalopram would be okay, Wellbutrin would be the least likely to cause tremor Follow thiamine and methylmalonic acid levels after discharge B12 and folate normal (5) Hypertension: Blood pressures are well controlled Continue lisinopril 20 mg p.o. daily -Discontinue atenolol and starting propranolol as above (6) T2DM (type 2 diabetes mellitus): HbA1C here is fairly well controlled at 7.6% With some hyperglycemia here persisting near 200 and once to 300 Pt reports she forgets to take her insulin at home Continue Lantus 30 units in AM and 40 units in evening COntinue Novolog at home with meals as per home sliding scale f/u with PCP encouraged compliance (7) Leukocytosis: Secondary to either UTI versus severe stress from anxiety as above Follow CBC-improved down to 12k on day of discharge peripheral smear without evidence of malignancy--> is all neutrophilia treated UTI as above (8) DVT prophylaxis: SCDs Disposition-dc to home today Total Time Total Time Spent Total Time Spent (In Minutes): 40 min Total Time Includes: Examination of the Patient, Discharge Planning, Medication Reconciliation and Communication With Other Providers (Psychiatry) Discharge Plan Discharge Items Patient Disposition: Home - Self-Care Reason For Visit: MENTAL HEALTH EVALUATION, UTI Discharge Diagnosis: Anxiety, UTI Condition on Discharge: Fair Activity: Resume your previous activity Non-emergency contact: Primary Care Provider and Psychiatrist Call non-emergency contact if: you have any medication questions and your symptoms worsen Follow-up/Referrals: Hilaria López D.O. [Primary Care Provider] - (Follow up within 1-2 weeks.) Diet: Carb Consistent or DM2 and Heart Healthy Addtl Attending Provider Instructions: You were admitted with significant anxiety, tremors, and found to have a urinary tract infection. Please finish out the course of antibiotics with cephalexin for the UTI for 5 more days. You were seen by Neurology and had a brain MRI which did not show anything new that would be causing your anxiety and tremor. You had a lot of labs drawn including checking your B vitamins and thyroid function ,kidney function, electrolytes. All of this was normal except your vitamin B1 level (thiamine) was still pending at the time of discharge. You will be contacted if this comes back abnormal. The Neurologist thought it would be better for you to take propranolol INSTEAD of ATENOLOL which will help you with your tremor and with high blood pressure. You were also seen by Psychiatry who thought your severe anxiety is worsened by your urinary tract infection. Please finish out the course of antibiotics and keep your appointment tomorrow with Dr. Zee. Psychiatry here thought it was FINE for you to continue taking all of your psychiatric medications as before, and follow up with your Psychiatrist for any further changes in medications. Pending Studies at Discharge: Yes Stand-Alone Forms: My [facility] Medications and DC Order Prescriptions: New propranolol 40 mg tablet 40 mg PO BID Qty: 60 RF: 0 cephalexin 500 mg capsule 500 mg PO BID Qty: 10 RF: 0 Continued buspirone 10 mg tablet 10 mg TID RF: 0 lisinopril 20 mg tablet 20 mg PO DAILY RF: 0 citalopram 20 mg tablet 20 mg PO DAILY RF: 0 potassium chloride 20 mEq tablet extended release 20 meq PO BID RF: 0 hydroxyzine pamoate [Vistaril] 25 mg Capsule 25 mg Q4 PRN (Reason: Anxiety) RF: 0 insulin aspart U-100 [Novolog Flexpen U-100 Insulin] 100 unit/mL (3 mL) insulin pen See Rx Instructions .ROUTE .COMPLEX RF: 0 Basaglar KwikPen U-100 Insulin 100 unit/mL (3 mL) insulin pen 30 unit SUBCUT QAM RF: 0 Discontinued atenolol 25 mg tablet 25 mg PO DAILY RF: 0 Discharge Orders: Discharge Order (Routine); Ordered 03/15/21 Ordered By: Erika Berg/Other Patient Handouts: Managing Type 2 Diabetes, A1C Admission Data Admit Date/Time: 03/13/21 17:04 Attending Provider: Erika Sims Admit Provider: Cl Roman Primary Care Provider: Hilaria López Other Providers: Cl Roman ; Martha Pacheco ; Sydnee Reyes ; Dr Todd ; Maggie Snyder ; Elroy Kraft Coding Level of Care Code 82777 OBS Care - Discharge Diagnoses Anxiety F41.9 UTI (urinary tract infection) N39.0 Dyskinesia G24.9 Tremor R25.1 Hypertension I10 T2DM (type 2 diabetes mellitus) E11.9 Leukocytosis D72.829 DVT prophylaxis Z29.9
[2021-03-15] MEDS ORDERED: MAGNESIUM CHLORIDE 64MG DELAYED REL TAB PO SCH (13:15)
[2021-03-19 07:28] LABS: Methylmalonic Acid 153 nmol/L (87-318)
== END 2021-03-15 13:59 | disposition home or self-care (01) ==
LOC: 3W 14:50 → ED 14:50 → SUATTDRO 17:04 → 3W 19:46